=== PATIENT | male | born 1970 | race Caucasian/White ===

== ENCOUNTER 2019-10-23 14:42 | Inpatient (IN) ==
[~2019-10-23 14:42] MED LIST: RAPID SEQUENCE INDUCTION BAG ONE
[2019-10-23] MEDS ORDERED: SODIUM CHLORIDE 0.9% 1000ML 1,000 ML IV SCH ×2 (15:00→19:00)
[2019-10-23 15:08] LABS: Basophils # (auto) 0.02 K/uL (0-0.2); Basophils % (auto) 0.2 %; Eosinophils # (auto) 0.04 K/uL (0-0.5); Eosinophils % (auto) 0.4 %; Hematocrit (blood only) 43.5 % (42-52); Hemoglobin 14.6 g/dL (14.0-18.0); Immature Granulocytes # (auto) 0.03 K/uL (0.00-0.02); Immature Granulocytes % (auto) 0.3 %; Lymphocytes # (auto) 4.34 K/uL (1.2-3.4); Lymphocytes % (auto) 39.8 %; Mean Corpuscular Hemoglobin 30.5 pg (25-34); Mean Corpuscular Hgb Conc 33.6 g/dL (32-36); Mean Corpuscular Volume 90.8 fL (80-100); Mean Platelet Volume 11.3 fL (7.4-10.4); Monocytes # (auto) 0.33 K/uL (0.11-0.59); Neutrophils # (auto) 6.14 K/uL (1.4-6.5); Neutrophils % (auto) 56.3 %; Platelet Count 247 K/uL (130-400); RDW Coefficient of Variation 12.9 % (11.5-14.5); RDW Standard Deviation 42.9 fL (36.4-46.3); Red Blood Count 4.79 M/uL (4.7-6.1)
--- NOTE | 2019-10-23 15:11 | XRay Report ---
XR chest 1V portable HISTORY: weakness COMPARISON: None. FINDINGS: The lungs are clear. Cardiac silhouette is normal in size. No pleural effusions. No pneumot horax. IMPRESSION: No acute process. ACT 112: Negative or not required by law. Electronically signed by: Mak Beasley M.D. 10/23/2019 3:09 PM
[2019-10-23 15:17] LABS: Prothrombin Time 10.9 Seconds (9.0-12.0)
--- NOTE | 2019-10-23 15:20 | Electrocardiogram Report ---
Test Reason : Blood Pressure : / mmHG Vent. Rate : 109 BPM Atrial Rate : 109 BPM P-R Int : 136 ms QRS Dur : 082 ms QT Int : 358 ms P-R-T Axes : 066 043 095 degrees QTc Int : 482 ms Sinus tachycardia Left atrial enlargement Borderline ECG No previous ECGs available Confirmed by Silvestre Romero ([id number]) on 10/23/2019 3:20:03 PM Referred By: REFERRED SELF Confirmed By:Silvestre Romero
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
[2019-10-23 15:27] LABS: Albumin Level 3.6 gm/dl (3.4-5.0); BUN Creatinine Ratio 13.1 (10-20); Calcium 8.6 mg/dl (8.5-10.1); Creatinine Clr Calc Pharmacy 75.4 ml/min; Est GFR (African American) 61.4; Est GFR (Non-African American) 52.9; Magnesium 2.1 mg/dl (1.8-2.4); Potassium 3.2 mmol/L (3.5-5.1)
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
[2019-10-23 15:56] LABS: Bilirubin,Total 0.8 mg/dl (0.2-1); Globulin 3.7 gm/dl (2.5-4.0); Thyroid Stimulating Hormone 1.77 uIu/ml (0.300-4.500); Total Protein 7.3 gm/dl (6.4-8.2); Troponin I 0.212 ng/ml (0-0.045)
[2019-10-23] MEDS ORDERED: ASPIRIN 81 MG CHEW ONE ×2 (15:56→15:58)
[2019-10-23] MEDS ORDERED: HEPARIN (PORCINE) 1000 UNIT/ML 10 ML (CATH LAB USE ONLY) ONE ×2 (16:07→17:17)
[2019-10-23] MEDS ORDERED: NiCARDipine HCL INJ 2.5 MG/ML 10 ML AMP ONE (16:07)
[2019-10-23] MEDS ORDERED: MIDAZOLAM HCL 1 MG/ML 2ML VIAL ONE (16:07)
[2019-10-23] MEDS ORDERED: fentaNYL citrate 100 MCG/2 ML VIAL ONE (16:07)
[2019-10-23] MEDS ORDERED: NITROGLYCERIN/D5W 100MCG/ML 20ML SYR ONE (16:08)
--- NOTE | 2019-10-23 16:14 | Pre Anesthesia Assessment ---
Date of Service October 23, 2019 Pre Sedation Assessment Vital Signs Temp Pulse Pulse Resp BP BP Pulse Ox 10/23/19 15:48 95 H 22 141/87 H 98 10/23/19 15:31 96 H 99 10/23/19 15:30 98 H 126/81 99 10/23/19 15:20 99 H 98 10/23/19 15:17 100 H 99 10/23/19 15:16 99 H 91/73 L 98 10/23/19 15:15 95 10/23/19 15:00 100 H 98 10/23/19 14:58 103 H 96 10/23/19 14:52 98.6 F 115 H 30 H 125/80 99 10/23/19 14:45 102 H 125/80 99 Cardiovascular RRR, no murmur, no edema Respiratory normal respiratory effort, lungs clear to auscultation Pre-Sedation Airway Assessment Smoking Status: Never smoker Hx Sleep Apnea: No Short, Thick Neck: No Thyromental Distance: > or= 3.5 Finger Breadths Oral Cavity: + WNL Mallampati Class: I ASA: ASA3 NPO Status Date of Last Intake of Fluids: 10/23/19 Time of Last Intake of Fluids: 07:00 Date of Last Intake of Solid Food: 10/23/19 Time of Last Intake of Solid Foods: 07:00 Procedure Planning Contraindications for Sedation: none Current Medications Reviewed: Yes Notes The planned sedation has been discussed with the patient. Informed Consent was obtained. I have identified the patient, determined the appropriateness of sedation and have assessed the patient immediately prior to the procedure. All medicine(s) and interventions are by my order.
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
[2019-10-23] MEDS ORDERED: TICAGRELOR 90 MG TAB PO ONE (17:59)
--- NOTE | 2019-10-23 18:26 | Post Anesthesia Assessment ---
Date of Service October 23, 2019 Post Sedation Assessment Vital Signs Temp Pulse Pulse Resp BP BP Pulse Ox 10/23/19 15:48 95 H 22 141/87 H 98 10/23/19 15:31 96 H 99 10/23/19 15:30 98 H 126/81 99 10/23/19 15:20 99 H 98 10/23/19 15:17 100 H 99 10/23/19 15:16 99 H 91/73 L 98 10/23/19 15:15 95 10/23/19 15:00 100 H 98 10/23/19 14:58 103 H 96 10/23/19 14:52 98.6 F 115 H 30 H 125/80 99 10/23/19 14:45 102 H 125/80 99 Recovery Score Activity: Moves 4 extremities Respiration: Deep Breath/Cough Circulation: +/-20% PreAnes Value Consciousness: Fully Awake Oxygen Saturation: O2 needed for >90% Discharge Sedation Level of Care: Fast Track Phase II Post Sedation Plan On clinical assessment, the patient appears to have tolerated the sedation without complications. Patient is recovering as anticipated. Patient will continue to be monitored by nursing and may be discharged when sedation discharge criteria are met per below protocol. Upon Completions of procedure up to 15 minutes continue every 5 minute vital signs and the P.A.R. score; then discharge to a Phase I or Fast Track to Phase II per the following guidelines: * Discharge Patient to appropriate Phase II area if PAR is 8 or greater or return to pre- procedure baseline. The post - procedure orders will be as directed. * If PAR score is less than 8 or not return to pre-procedure baseline then patient will follow Phase I monitoring till PAR is reached for Phase II. The Phase I may be done in procedure room or may call to secure a Phase I area. * If naloxone or flumazenil are used for reversal, hold in Phase I for continued monitoring from when last reversal dose was given for a minimum of 60 minutes or longer pending the nurse and/or physician discretion of patient condition before discharge to Phase II. Please call the Sedation Physician to re-evaluate and complete post-note for discharge to Phase II area. Do NOT discharge from procedure sedation or Phase 1 until post- sedation evaluation note is complete by procedure /sedation MD Sedation Discharge Instructions to be given to the patient at discharge to home.
[2019-10-23] MEDS ORDERED: MoRPHine SULFATE 2 MG/ML CARP IV PRN (18:35)
[2019-10-23] MEDS ORDERED: ICU ELECTROLYTE REPLACEMENT PROTOCOL PRN (18:35)
[2019-10-23] MEDS ORDERED: ICU PROTOCOL FOR HYPERGLYCEMIA PRN (18:35)
[2019-10-23] MEDS ORDERED: POTASSIUM CHLORIDE 10 MEQ / 100ML WTR IV STA (18:35)
[2019-10-23] MEDS ORDERED: LORazepam 0.5 MG TAB PO PRN (18:35)
[2019-10-23] MEDS ORDERED: ONDANSETRON INJ 2 MG/ML 2 ML VIAL IV PRN (18:48)
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
[2019-10-23] MEDS: POTASSIUM CHLORIDE / WTR 10 MEQ/100 ML PLCT IV SCH ×3 (19:22→21:22)
[2019-10-23 19:27] LABS: BUN Creatinine Ratio 15.5 (10-20); Calcium 8.8 mg/dl (8.5-10.1); Creatinine Clr Calc Pharmacy 89.3 ml/min; Est GFR (African American) 75.3; Potassium 3.7 mmol/L (3.5-5.1)
[2019-10-23] MEDS: METOPROLOL TARTRATE 25 MG TAB PO SCH (20:40)
[2019-10-23] MEDS: POTASSIUM CHLORIDE 20 MEQ TABCR PO SCH (20:40)
[2019-10-24] MEDS: TICAGRELOR 90 MG TAB PO SCH ×2 (06:12→17:18)
[2019-10-24 06:24] LABS: Basophils # (auto) 0.01 K/uL (0-0.2); Basophils % (auto) 0.1 %; Eosinophils # (auto) 0.02 K/uL (0-0.5); Eosinophils % (auto) 0.2 %; Hematocrit (blood only) 39.7 % (42-52); Hemoglobin 13.4 g/dL (14.0-18.0); Immature Granulocytes # (auto) 0.01 K/uL (0.00-0.02); Immature Granulocytes % (auto) 0.1 %; Lymphocytes # (auto) 1.69 K/uL (1.2-3.4); Lymphocytes % (auto) 16.2 %; Mean Corpuscular Hemoglobin 30.2 pg (25-34); Mean Corpuscular Hgb Conc 33.8 g/dL (32-36); Mean Corpuscular Volume 89.4 fL (80-100); Mean Platelet Volume 10.9 fL (7.4-10.4); Monocytes % (auto) 5.8 %; Neutrophils # (auto) 8.08 K/uL (1.4-6.5); Neutrophils % (auto) 77.6 %; Platelet Count 185 K/uL (130-400); RDW Coefficient of Variation 13.1 % (11.5-14.5); RDW Standard Deviation 42.4 fL (36.4-46.3); Red Blood Count 4.44 M/uL (4.7-6.1); White Blood Count 10.41 K/uL (4.8-10.8)
[2019-10-24 06:48] LABS: BUN Creatinine Ratio 14.5 (10-20); Calcium 8.4 mg/dl (8.5-10.1); Est GFR (African American) 104.7; Est GFR (Non-African American) 90.3; Magnesium 2.1 mg/dl (1.8-2.4); Phosphorus 2.7 mg/dl (2.5-4.9); Potassium 3.8 mmol/L (3.5-5.1); Troponin I 16.2 ng/ml (0-0.045)
--- NOTE | 2019-10-24 08:00 | Critical Care Progress Note ---
Date of Service October 24, 2019 Assessment & Plan (1) Cardiac arrest: Impression: 49 y/o without significant PMH presents with OOH VF cardiac arrest. Arrest likely precipitated by cardiac ischemia. He had an elevated lactate and evidence of elevated LFTs on presentation. Cardiac catheterization showed multivessel disease with the culprit lesion likely being an LAD. He had drug-eluting stent placed with angioplasty and has been monitored in the ICU post procedure. Recommendations: 1. Out of hospital cardiac arrest: Patient is neurologically intact. Likely secondary to cardiac ischemia. We will continue to monitor for arrhythmias post cardiac intervention. 2. Coronary artery disease: Status post drug-eluting stent to the LAD. He has multivessel disease and will likely require staged procedure. Heart rate and blood pressure have been adequately controlled. He is currently receiving aspirin, Brilinta, Lipitor, Lopressor, and Zestril. Additional titration of these medications per cardiology. 3. Elevated liver function test: Unclear if this represents hypoperfusion. It seems fairly hyperacute. Recheck LFTs today. 4. Elevated lactate level: Likely sequelae of cardiac arrest. Follow-up lactate now normal. 5. Hypokalemia: Unclear precipitant. Corrected with replacement. Continue to trend. Disposition per cardiology. Will sign off once he leaves the ICU. Feel free to contact us if we can be of additional critical care pulmonary assistance (2) Transaminitis: (3) Elevated lactic acid level: Admission and Anticipated Discharge Date Admission Date: October 23, 2019 Subjective Patient seen and examined. EMR reviewed. Discussed with critical care nurse at bedside. The patient is status post coronary angiography with drug-eluting stent placement in LAD. He has been stable overnight. No recurrent chest pain or palpitations. No persistent arrhythmias although he has had a few PACs. Has been hemodynamically stable. He denies any nausea vomiting syncope or presyncope. He overall feels well. Review of Systems Review of Systems: All systems reviewed & are unremarkable except as noted in HPI & below Physical Exam Constitutional: WD/WN, vitals as above Neck: trachea midline, no thyromegaly Respiratory: normal respiratory effort, lungs clear to auscultation Cardiovascular: RRR, no murmur, no edema Gastrointestinal (Abdomen): normal bowel sounds, soft, nontender, no hepatosplenomegaly Musculoskeletal: Extremities: extremities normal to inspection Skin: no rashes, warm and dry Lymphatic: no cervical lymphadenopathy Results & Data Results & Data ([facility]) Vital Signs (Past 12 Hours) Vital Signs Temp Pulse Resp BP Pulse Ox 10/24/19 05:40 67 7 L 127/70 96 10/24/19 04:40 73 14 140/91 97 10/24/19 03:40 36.6 C 75 12 119/73 96 10/24/19 02:32 68 12 112/75 95 10/24/19 02:02 72 12 104/75 95 10/24/19 01:32 78 12 114/76 96 10/24/19 01:02 80 0 L 112/85 94 10/24/19 00:32 83 14 107/69 95 10/24/19 00:02 36.6 C 87 16 125/85 96 10/24/19 00:00 82 10/23/19 23:32 90 14 136/82 96 10/23/19 23:02 89 14 146/94 H 96 10/23/19 22:32 89 13 128/86 94 10/23/19 22:02 96 H 16 93/75 L 96 10/23/19 21:32 94 H 23 125/77 95 10/23/19 21:02 89 16 124/72 96 10/23/19 20:26 90 17 150/110 H 94 10/23/19 20:16 87 14 133/90 97 10/23/19 20:07 36.5 C 87 21 131/94 95 Laboratory Results 10/24/19 06:15 10/24/19 06:15 Lactate decreased to 1.4 from 3.5 Initial troponin 11.4 increased to 16.2 Diagnostic Findings Cardiac cath report reviewed. Coding Level of Care Code 17633 Subseq Hosp Care Lvl 3 Diagnoses Cardiac arrest I46.9 Transaminitis R74.0 Elevated lactic acid level R79.89 Time Spent (min) 30
--- NOTE | 2019-10-24 08:14 | XCELERA ---
[id number]
[2019-10-24 08:36] LABS: Albumin Level 3.2 gm/dl (3.4-5.0); Bilirubin Direct 0.2 mg/dl (0-0.2); Total Protein 6.7 gm/dl (6.4-8.2)
[2019-10-24] MEDS: METOPROLOL TARTRATE 25 MG TAB PO SCH ×2 (08:53→20:39)
[2019-10-24] MEDS: ASPIRIN 81 MG ECTAB PO SCH (08:53)
[2019-10-24] MEDS: ATORVASTATIN 40 MG TAB PO SCH (08:54)
[2019-10-24] MEDS: POTASSIUM CHLORIDE 20 MEQ TABCR PO SCH ×2 (08:56→20:39)
[2019-10-24] MEDS ORDERED: lisinopriL 5 MG TAB PO SCH (09:00)
--- NOTE | 2019-10-24 11:57 | Electrocardiogram Report ---
Test Reason : Blood Pressure : / mmHG Vent. Rate : 087 BPM Atrial Rate : 087 BPM P-R Int : 152 ms QRS Dur : 076 ms QT Int : 366 ms P-R-T Axes : 068 008 058 degrees QTc Int : 440 ms Normal sinus rhythm Inferior infarct , age undetermined Recent Anteroseptal infarct Abnormal ECG When compared with ECG of 23-OCT-2019 14:50, Anteroseptal infarct is now Present ST no longer depressed in Anterolateral leads Confirmed by Silvestre Romero ([id number]) on 10/24/2019 11:57:31 AM Referred By: REFERRED SELF Confirmed By:Silvestre Romero
[2019-10-24] MEDS ORDERED: fentaNYL citrate 100 MCG/2 ML VIAL ONE (13:48)
[2019-10-24] MEDS ORDERED: NiCARDipine HCL INJ 2.5 MG/ML 10 ML AMP ONE (13:48)
[2019-10-24] MEDS ORDERED: HEPARIN (PORCINE) 1000 UNIT/ML 10 ML (CATH LAB USE ONLY) ONE (13:48)
[2019-10-24] MEDS ORDERED: MIDAZOLAM HCL 1 MG/ML 2ML VIAL ONE (13:49)
[2019-10-24] MEDS ORDERED: NITROGLYCERIN/D5W 100MCG/ML 20ML SYR ONE (13:49)
--- NOTE | 2019-10-24 13:49 | Pre Anesthesia Assessment ---
Date of Service October 24, 2019 Pre Sedation Assessment Vital Signs Temp Pulse Pulse Resp BP BP BP 10/24/19 10:40 98.4 F 72 12 140/95 10/24/19 09:40 78 15 131/79 10/24/19 08:39 98.6 F 72 13 144/87 H 10/24/19 07:40 72 12 126/78 10/24/19 07:00 71 13 10/24/19 05:40 67 7 L 127/70 10/24/19 04:40 73 14 140/91 10/24/19 03:40 97.9 F 75 12 119/73 10/24/19 02:32 68 12 112/75 10/24/19 02:02 72 12 104/75 10/24/19 01:32 78 12 114/76 10/24/19 01:02 80 0 L 112/85 10/24/19 00:32 83 14 107/69 10/24/19 00:02 97.9 F 87 16 125/85 10/24/19 00:00 82 10/23/19 23:32 90 14 136/82 10/23/19 23:02 89 14 146/94 H 10/23/19 22:32 89 13 128/86 10/23/19 22:02 96 H 16 93/75 L 10/23/19 21:32 94 H 23 125/77 10/23/19 21:02 89 16 124/72 10/23/19 20:26 90 17 150/110 H 10/23/19 20:16 87 14 133/90 10/23/19 20:07 97.7 F 87 21 131/94 10/23/19 19:46 88 11 L 132/76 10/23/19 19:36 84 9 L 131/88 10/23/19 19:27 85 21 10/23/19 19:26 86 16 151/88 H 10/23/19 19:15 88 12 131/76 10/23/19 19:06 85 10 L 112/80 10/23/19 18:49 87 17 124/78 10/23/19 18:46 84 124/78 10/23/19 18:30 97.5 F L 90 90 20 121/73 10/23/19 15:48 95 H 22 141/87 H 10/23/19 15:31 96 H 10/23/19 15:30 98 H 126/81 10/23/19 15:20 99 H 10/23/19 15:17 100 H 10/23/19 15:16 99 H 91/73 L 10/23/19 15:15 10/23/19 15:00 100 H 10/23/19 14:58 103 H 10/23/19 14:52 98.6 F 115 H 30 H 125/80 10/23/19 14:45 102 H 125/80 Pulse Ox 10/24/19 10:40 97 10/24/19 09:40 96 10/24/19 08:39 95 10/24/19 07:40 97 10/24/19 07:00 96 10/24/19 05:40 96 10/24/19 04:40 97 10/24/19 03:40 96 10/24/19 02:32 95 10/24/19 02:02 95 10/24/19 01:32 96 10/24/19 01:02 94 10/24/19 00:32 95 10/24/19 00:02 96 10/24/19 00:00 10/23/19 23:32 96 10/23/19 23:02 96 10/23/19 22:32 94 10/23/19 22:02 96 10/23/19 21:32 95 10/23/19 21:02 96 10/23/19 20:26 94 10/23/19 20:16 97 10/23/19 20:07 95 10/23/19 19:46 95 10/23/19 19:36 97 10/23/19 19:27 95 10/23/19 19:26 97 10/23/19 19:15 93 10/23/19 19:06 96 10/23/19 18:49 98 10/23/19 18:46 94 10/23/19 18:30 97 10/23/19 15:48 98 10/23/19 15:31 99 10/23/19 15:30 99 10/23/19 15:20 98 10/23/19 15:17 99 10/23/19 15:16 98 10/23/19 15:15 95 10/23/19 15:00 98 10/23/19 14:58 96 10/23/19 14:52 99 07/02/20 14:45 99 Cardiovascular RRR, no murmur, no edema Respiratory normal respiratory effort, lungs clear to auscultation Pre-Sedation Airway Assessment Smoking Status: Never smoker Hx Sleep Apnea: No Hx Difficult Intubation: No Short, Thick Neck: No Thyromental Distance: > or= 3.5 Finger Breadths Oral Cavity: + WNL Mallampati Class: I ASA: ASA3 NPO Status Date of Last Intake of Fluids: 10/23/19 Time of Last Intake of Fluids: 07:00 Date of Last Intake of Solid Food: 10/23/19 Time of Last Intake of Solid Foods: 07:00 Procedure Planning Contraindications for Sedation: none Current Medications Reviewed: Yes Notes The planned sedation has been discussed with the patient. Informed Consent was obtained. I have identified the patient, determined the appropriateness of sedation and have assessed the patient immediately prior to the procedure. All medicine(s) and interventions are by my order.
--- NOTE | 2019-10-24 13:50 | Hospitalist Progress Note ---
Date of Service October 24, 2019 Assessment & Plan (1) Cardiac arrest: Patient survival of sudden cardiac arrest on the scene due to AED application for likely V. fib with concern for cardiac ischemia. Patient taken emergently to the cardiac catheterization lab. Initial EKG shows some perhaps ST elevation inferiorly with reciprocal changes laterally. Results of the cardiac catheterization include intervention to lad and diagonal. Summary: Severe multivessel coronary artery disease -100% acute on chronic mid LAD occlusion. Apical vessel fills retrograde via right to left collaterals from right acute marginal 90% proximal second diagonal 95% distal RCA stenosis 99% ostial right PDA. Fills retrograde via [id number] collaterals from large OM Successful PCI of mid LAD occlusion at bifurcation of second diagonal with 3 total Davis drug-eluting stents (3.0 x 26, 3.0 x 34 overlapping in LAD, 2.5 x 15 to ostium of second diagonal). 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 Continue dual-antiplatelet therapy for at least 1 year Start low-dose beta-anderson, EMMETT inhibitor and high intensity statin Plan for staged PCI of distal RCA later in this hospitalization pending stable renal function Cardiology started asa, brillinta, metoprolol and lisinpril Patient will be admitted to the ICU Lipids, A1c pending (2) Transaminitis: Patient with AST elevated ton admission denies alcohol use and smoking Trend (3) Elevated lactic acid level: Patient's lactic acid is 5.5 and presentation could be due to his cardiac arrest will repeat labs reflexively he will be hydrated Admission and Anticipated Discharge Date Admission Date: October 23, 2019 Subjective Pt states he has some chest wall soreness related to CPR, but no other chest pain. No SOB. He is awaiting his second cath. Pt denies fever, SOB, chest pain, abd pain, n/v/c/d, LE pain or swelling. Review of Systems Review of Systems: Pertinent positives and negatives reviewed in HPI--all others negative Physical Exam Constitutional: WD/WN, vitals as above Eyes: normal visual caballero by confrontation and + anicteric sclerae Neck: normal visual inspection and trachea midline Respiratory: normal respiratory effort, lungs clear to auscultation Cardiovascular: Rate/Rhythm: regular rate and regular rhythm Gastrointestinal (Abdomen): Inspection/Auscultation: abdomen not distended Percussion/Palpation: abdomen soft; abdomen nontender Musculoskeletal: Head/Neck/Chest: normocephalic and head atraumatic negative for edema, peripheral pulses intact Skin: no rashes, warm and dry Neurologic: awake; not confused Speech / Cognition: normal speech Psychiatric: A+Ox3, euthymic affect Results & Data Results & Data ([facility]) Vital Signs (Past 12 Hours) Vital Signs Temp Pulse Resp BP Pulse Ox 10/24/19 10:40 36.9 C 72 12 140/95 97 10/24/19 09:40 78 15 131/79 96 10/24/19 08:39 37.0 C 72 13 144/87 H 95 10/24/19 07:40 72 12 126/78 97 10/24/19 07:00 71 13 96 10/24/19 05:40 67 7 L 127/70 96 10/24/19 04:40 73 14 140/91 97 10/24/19 03:40 36.6 C 75 12 119/73 96 10/24/19 02:32 68 12 112/75 95 10/24/19 02:02 72 12 104/75 95 PG Care Time/CCT Total # of Minutes Spent Total Time Spent with Patient: Total time spent is greater than 50% in coordination of care (as documented) at patient's floor/unit and/or counseling patient: Coding Level of Care Code 93670 Subseq Hosp Care Lvl 3 Diagnoses Cardiac arrest I46.9 Transaminitis R74.0 Elevated lactic acid level R79.89
--- NOTE | 2019-10-24 14:04 | Cardiology Progress Note ---
Date of Service October 24, 2019 Assessment & Plan (1) Cardiac arrest: 2. Severe multivessel coronary artery disease --Post PCI with 3 ERICK to LAD, diagonal --Residual severe distal RCA disease into PDA 3. Preserved LV function with apical wall motion abnormality Patient doing well from a cardiac standpoint. No additional arrhythmia. No chest pain overnight. LV function preserved Post procedure labs stable No apparent access site complications. Plan to proceed with staged PCI of distal RCA into PDA today Continue DAPT with aspirin, ticagrelor Titrate up beta-anderson as BP allows Continue EMMETT inhibitor, statin From a cardiac standpoint okay with transfer to telemetry and could potentially be discharged tomorrow Admission and Anticipated Discharge Date Admission Date: October 23, 2019 Subjective Feeling well today. No chest pain. No events overnight. Telemetry reviewedno significant arrhythmia Echo reviewedEF preserved, apical hypokinesis involving inferior, septal, anterior segments Review of Systems Review of Systems: All systems reviewed & are unremarkable except as noted in HPI & below Physical Exam Physical Exam: General: Comfortable, no acute distress HEENT: Sclerae anicteric, mucous membranes moist Lungs: Clear to auscultation bilaterally, no rhonchi or wheezes Cardiac: Regular rate and rhythm, no murmurs. Abdomen: Soft, nontender, nondistended, positive bowel sounds. Extremities: Warm, well perfused, no edema. Right radial artery access site with no ecchymosis, hematoma. Distal pulse and sensation intact. Skin: No rashes or lesions. Neuro: Nonfocal Psych: Alert orient x3, normal affect and mood Results & Data ([facility]) Vital Signs (Past 12 Hours) Vital Signs Temp Pulse Resp BP Pulse Ox 10/24/19 10:40 98.4 F 72 12 140/95 97 10/24/19 09:40 78 15 131/79 96 10/24/19 08:39 98.6 F 72 13 144/87 H 95 10/24/19 07:40 72 12 126/78 97 10/24/19 07:00 71 13 96 10/24/19 05:40 67 7 L 127/70 96 10/24/19 04:40 73 14 140/91 97 10/24/19 03:40 97.9 F 75 12 119/73 96 10/24/19 02:32 68 12 112/75 95 10/24/19 02:02 72 12 104/75 95 PG Care Time/CCT Total # of Minutes Spent Total Time Spent with Patient: Total time spent is greater than 50% in coordination of care (as documented) at patient's floor/unit and/or counseling patient: Coding Level of Care Code 40652 Subseq Hosp Care Lvl 3 Diagnoses Cardiac arrest I46.9
--- NOTE | 2019-10-24 15:01 | Post Anesthesia Assessment ---
Date of Service October 24, 2019 Post Sedation Assessment Vital Signs Temp Pulse Pulse Resp BP BP BP 10/24/19 14:55 66 20 115/82 10/24/19 10:40 98.4 F 72 12 140/95 10/24/19 09:40 78 15 131/79 10/24/19 08:39 98.6 F 72 13 144/87 H 10/24/19 07:40 72 12 126/78 10/24/19 07:00 71 13 10/24/19 05:40 67 7 L 127/70 10/24/19 04:40 73 14 140/91 10/24/19 03:40 97.9 F 75 12 119/73 10/24/19 02:32 68 12 112/75 10/24/19 02:02 72 12 104/75 10/24/19 01:32 78 12 114/76 10/24/19 01:02 80 0 L 112/85 10/24/19 00:32 83 14 107/69 10/24/19 00:02 97.9 F 87 16 125/85 10/24/19 00:00 82 10/23/19 23:32 90 14 136/82 10/23/19 23:02 89 14 146/94 H 10/23/19 22:32 89 13 128/86 10/23/19 22:02 96 H 16 93/75 L 10/23/19 21:32 94 H 23 125/77 10/23/19 21:02 89 16 124/72 10/23/19 20:26 90 17 150/110 H 10/23/19 20:16 87 14 133/90 10/23/19 20:07 97.7 F 87 21 131/94 10/23/19 19:46 88 11 L 132/76 10/23/19 19:36 84 9 L 131/88 10/23/19 19:27 85 21 10/23/19 19:26 86 16 151/88 H 10/23/19 19:15 88 12 131/76 10/23/19 19:06 85 10 L 112/80 10/23/19 18:49 87 17 124/78 10/23/19 18:46 84 124/78 10/23/19 18:30 97.5 F L 90 90 20 121/73 10/23/19 15:48 95 H 22 141/87 H 10/23/19 15:31 96 H 10/23/19 15:30 98 H 126/81 10/23/19 15:20 99 H 10/23/19 15:17 100 H 10/23/19 15:16 99 H 91/73 L 10/23/19 15:15 Pulse Ox 10/24/19 14:55 96 10/24/19 10:40 97 10/24/19 09:40 96 10/24/19 08:39 95 10/24/19 07:40 97 10/24/19 07:00 96 10/24/19 05:40 96 10/24/19 04:40 97 10/24/19 03:40 96 10/24/19 02:32 95 10/24/19 02:02 95 10/24/19 01:32 96 10/24/19 01:02 94 10/24/19 00:32 95 10/24/19 00:02 96 10/24/19 00:00 10/23/19 23:32 96 10/23/19 23:02 96 10/23/19 22:32 94 10/23/19 22:02 96 10/23/19 21:32 95 10/23/19 21:02 96 10/23/19 20:26 94 10/23/19 20:16 97 10/23/19 20:07 95 10/23/19 19:46 95 10/23/19 19:36 97 10/23/19 19:27 95 10/23/19 19:26 97 10/23/19 19:15 93 10/23/19 19:06 96 10/23/19 18:49 98 10/23/19 18:46 94 10/23/19 18:30 97 10/23/19 15:48 98 10/23/19 15:31 99 10/23/19 15:30 99 10/23/19 15:20 98 10/23/19 15:17 99 10/23/19 15:16 98 10/23/19 15:15 95 Recovery Score Activity: Moves 4 extremities Respiration: Deep Breath/Cough Circulation: +/-20% PreAnes Value Consciousness: Fully Awake Oxygen Saturation: O2 needed for >90% Discharge Sedation Level of Care: Fast Track Phase II Post Sedation Plan On clinical assessment, the patient appears to have tolerated the sedation without complications. Patient is recovering as anticipated. Patient will continue to be monitored by nursing and may be discharged when sedation discharge criteria are met per below protocol. Upon Completions of procedure up to 15 minutes continue every 5 minute vital signs and the P.A.R. score; then discharge to a Phase I or Fast Track to Phase II per the following guidelines: * Discharge Patient to appropriate Phase II area if PAR is 8 or greater or return to pre- procedure baseline. The post - procedure orders will be as directed. * If PAR score is less than 8 or not return to pre-procedure baseline then patient will follow Phase I monitoring till PAR is reached for Phase II. The Phase I may be done in procedure room or may call to secure a Phase I area. * If naloxone or flumazenil are used for reversal, hold in Phase I for continued monitoring from when last reversal dose was given for a minimum of 60 minutes or longer pending the nurse and/or physician discretion of patient condition before discharge to Phase II. Please call the Sedation Physician to re-evaluate and complete post-note for discharge to Phase II area. Do NOT discharge from procedure sedation or Phase 1 until post- sedation evaluation note is complete by procedure /sedation MD Sedation Discharge Instructions to be given to the patient at discharge to home.
--- NOTE | 2019-10-24 15:07 | Cardiac Catheterization ---
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 Clinical evaluation leading to the procedure CAD Presenation: Non STEMI Anginal Classification: CCS IV Heart Failure: No Cardiogenic Shock within 24 Hours: No Cardiac Arrest within 24 Hours: Yes Imaging Studies Past 6 Months: Yes Stress Studies Past 6 Months: No Diagnostic Physicians Name: Power Flynn MD Status: Elective Closure Device Percutaneous Entry Location: Radial Closure Device: Radial Band Recommendations: PCI without planned CABG PCI Indication: Staged PCI Lesion Segment Name: distal RCA Culprit Artery: No Stenosis Prior to Rx (%): 95 Chronic Total Occlusion: No IVUS: No FFR: No Pre-Procedure PRASHANT Flow: 2 Previously Treated Lesion: No Lesion Complexity: Non-High/Non-C Lesion Length (mm): 22 Thrombus Present: No Bifurcation Lesion: Yes Guidewire Across Lesion: Stenosis Post-Procedure (%): 0 Post-Procedure PRASHANT Flow: 3 Devices(s) Deployed: Yes Yes Intraprocedure Events Significant Disection: No Perforation: No Cardiac Cath Procedure Full Procedure Date October 24, 2019 Pre-Procedure Diagnosis Pre-Procedure Diagnosis: Non STEMI and Cardiothoracic Symptom (Cardiac arrest) AUC Score AUC Score: 8 Post-Procedure Diagnosis Post-Procedure Diagnosis: Severe CAD and Successful PCI Procedure(s) Performed Procedure(s) Performed: Coronary Angiography and Drug Eluting Stent Garnett Mechanic Power Flynn MD Zone Maintenance Technician(s) Paolo Estimated Blood Loss Estimated Blood Loss: 10 Medication(s) Medication(s): Fentanyl, Heparin, Lidocaine 1%, Nicardipine and Nitroglycerin Summary of Findings Indication: Staged PCI of RCA. Post cardiac arrest and PCI to LAD/diagonal yesterday Access: 6 Fr right radial artery Catheters: JR4 guide Findings: For full details of patient's coronary angiography please see cath report dictated from 10/23/2019. Briefly patient found to have severe distal RCA disease as well as severe ostial PDA disease with PDA filling retrograde via [id number] collaterals. -- PCI -- Antithrombotic therapy: Heparin, ticagrelor Procedure: RCA cannulated with JR4 guide Shipping Room Supervisor 50 wire passed across lesion into distal vessel Distal RCA lesion predilated with 2.0 compliant balloon Dilated lesion stented with 2.25 x 22 mm Davis drug-eluting stent from mid RCA into right PDA Stent post-dilated with stent balloon IC vasodilators administered for spasm Post procedure PRASHANT 3 flow, stent well expanded with minimal residual stenosis and no apparent cardiac complications. Arterial Closure: TR band Summary: 1. Successful PCI of distal RCA into right PDA with a single drug-eluting stent (2.25 x 22 mm [place]). Recommendations: Return to ICU for continued monitoring Continue dual-antiplatelet therapy for at least 1 year Hemodynamics Rest Ao:: 119/65/85 Final Ao: 95/65/77 LV: -- Recommendations Recommendations: PCI without planned CABG Specimens Specimens: None Radiation Exposure (mGy) 1745 Contrast (mls) 35 Fluids (cc crystalloids) Fluids (cc crystalloids): 80 Drains Drains: None Anesthesia Moderate Procedural Complication(s) None Disposition ICU I attest to the content of the Intraoperative Record and any orders documented therein. Any exceptions are noted below. [facility] Card Cath Procedure Codes Moderate Sedation Procedure 1: Sedation/Anesthesia: 45885 Mod Sedation by the same physician;Init15 Min Child Age 5 & Up Stenting Procedure 1: Cardiovascular Stent Procedures: 02062 Perc transcatheter placement of intracoronary stent(s), with ang PG Care Time/CCT Total # of Minutes Spent Total Time Spent with Patient: Total time spent is greater than 50% in coordination of care (as documented) at patient's floor/unit and/or counseling patient:
[2019-10-24] MEDS ORDERED: SODIUM CHLORIDE 0.9% 1000ML 1,000 ML IV SCH (15:15)
--- NOTE | 2019-10-24 15:52 | Electrocardiogram Report ---
Test Reason : Blood Pressure : / mmHG Vent. Rate : 070 BPM Atrial Rate : 070 BPM P-R Int : 168 ms QRS Dur : 088 ms QT Int : 388 ms P-R-T Axes : 055 016 097 degrees QTc Int : 419 ms Normal sinus rhythm Recent Septal infarct (cited on or before 23-OCT-2019) Recent Inferior infarct (cited on or before 23-OCT-2019) Abnormal ECG When compared with ECG of 23-OCT-2019 18:43, Inverted T waves have replaced nonspecific T wave abnormality in Lateral leads Confirmed by Silvestre Romero ([id number]) on 10/24/2019 3:52:32 PM Referred By: REFERRED SELF Confirmed By:Silvestre Romero
[2019-10-25] MEDS ORDERED: NITROGLYCERIN SL 0.4 MG/TAB TAB SL SCH
[2019-10-25 04:32] LABS: Basophils # (auto) 0.02 K/uL (0-0.2); Basophils % (auto) 0.2 %; Eosinophils # (auto) 0.12 K/uL (0-0.5); Eosinophils % (auto) 1.4 %; Hematocrit (blood only) 40.4 % (42-52); Hemoglobin 13.4 g/dL (14.0-18.0); Immature Granulocytes # (auto) 0.02 K/uL (0.00-0.02); Immature Granulocytes % (auto) 0.2 %; Lymphocytes # (auto) 2.68 K/uL (1.2-3.4); Lymphocytes % (auto) 30.6 %; Mean Corpuscular Hgb Conc 33.2 g/dL (32-36); Mean Corpuscular Volume 93.5 fL (80-100); Monocytes # (auto) 0.64 K/uL (0.11-0.59); Monocytes % (auto) 7.3 %; Neutrophils # (auto) 5.27 K/uL (1.4-6.5); Neutrophils % (auto) 60.3 %; Platelet Count 178 K/uL (130-400); RDW Coefficient of Variation 13.1 % (11.5-14.5); RDW Standard Deviation 44.9 fL (36.4-46.3); Red Blood Count 4.32 M/uL (4.7-6.1); White Blood Count 8.75 K/uL (4.8-10.8)
[2019-10-25 04:50] LABS: BUN Creatinine Ratio 12.2 (10-20); Calcium 8.7 mg/dl (8.5-10.1); Creatinine Clr Calc Pharmacy 85.3 ml/min; Est GFR (African American) 80.5; Est GFR (Non-African American) 69.5; Magnesium 2.2 mg/dl (1.8-2.4); Potassium 4.3 mmol/L (3.5-5.1)
[2019-10-25 04:53] LABS: Phosphorus 2.6 mg/dl (2.5-4.9)
[2019-10-25] MEDS: TICAGRELOR 90 MG TAB PO SCH ×2 (05:31→17:01)
[2019-10-25 05:59] LABS: Estimated Average Glucose 120 mg/dl; Hemoglobin A1C 5.8 % (4.5-5.6)
--- NOTE | 2019-10-25 07:39 | Critical Care Progress Note ---
Date of Service October 25, 2019 Assessment & Plan (1) Cardiac arrest: Impression: 49 y/o without significant PMH presents with OOH VF cardiac arrest. Arrest likely precipitated by cardiac ischemia. He had an elevated lactate and evidence of elevated LFTs on presentation which have now resolved. Cardiac catheterization showed multivessel disease with the culprit lesion likely being an LAD. He is undergone staged cardiac catheterization and stenting with initial stent placement LAD and follow-up stent 24 hours later placed to the RCA. He is doing well clinically Recommendations: 1. Out of hospital cardiac arrest: Patient is neurologically intact. Likely secondary to cardiac ischemia. No significant sequelae 2. Coronary artery disease: Status post drug-eluting stent to the LAD with follow-up staging procedure and stenting of the RCA. Heart rate and blood pressure have been adequately controlled. He is currently receiving aspirin, Brilinta, Lipitor, Lopressor, and Zestril. Additional titration of these medications per cardiology. 3. Elevated liver function test: Resolving. 4. Elevated lactate level: Likely sequelae of cardiac arrest. Follow-up lactate now normal. 5. Hypokalemia: Unclear precipitant. Corrected with replacement. Continue to trend. 6. Elevated hemoglobin A1c of 5.8. Recommend diet control and follow-up with PCM. Blood sugars have been adequate here in the hospital. Consider referral to the market president. Per primary service Cardiology notes indicate possible transfer to telemetry or discharge today. Will sign off at this point time. Feel free to contact us if we can be of additional assistance (2) Transaminitis: (3) Elevated lactic acid level: Admission and Anticipated Discharge Date Admission Date: October 23, 2019 Subjective No events overnight. Return to the Audio Visual Specialist yesterday afternoon for staged procedure with stenting of the right coronary artery which was uneventful. The patient's radial access site looks good. He has no chest pain or palpitations. He is tolerating a diet. He is been hemodynamically stable. Review of Systems Review of Systems: All systems reviewed & are unremarkable except as noted in HPI & below Physical Exam Constitutional: WD/WN, vitals as above Neck: trachea midline, no thyromegaly Respiratory: normal respiratory effort, lungs clear to auscultation Cardiovascular: RRR, no murmur, no edema Gastrointestinal (Abdomen): normal bowel sounds, soft, nontender, no hepatosplenomegaly Musculoskeletal: Extremities: extremities normal to inspection Skin: no rashes, warm and dry Lymphatic: no cervical lymphadenopathy Results & Data Results & Data ([facility]) Vital Signs (Past 12 Hours) Vital Signs Temp Pulse Resp BP Pulse Ox 10/25/19 06:16 36.8 C 10/25/19 06:00 57 L 14 96 10/25/19 05:21 56 L 18 81/54 L 95 10/25/19 04:21 58 L 19 108/67 97 10/25/19 04:00 60 13 97 10/25/19 03:38 68 19 118/66 96 10/25/19 02:22 59 L 10 L 107/66 96 10/25/19 02:08 36.9 C 10/25/19 02:01 57 L 3 L 94 10/25/19 01:21 60 13 98/61 L 95 10/25/19 00:42 60 10/25/19 00:22 56 L 16 88/48 L 96 10/25/19 00:00 57 L 12 95 10/24/19 23:25 70 20 100/73 98 10/24/19 22:21 65 17 131/87 97 10/24/19 22:00 64 19 97 10/24/19 21:21 67 19 114/71 96 10/24/19 20:54 76 10/24/19 20:50 36.6 C 10/24/19 20:41 69 16 97 10/24/19 20:40 76 21 116/71 93 10/24/19 20:00 74 18 95 Laboratory Results 10/25/19 04:22 10/25/19 04:22 Diagnostic Findings Cath note reviewed with stenting of the distal RCA Echo from yesterday showed concentric LVH with an EF of 50 to 55% with mild to moderate apical, inferior, septal, and anterior hypokinesis with abnormal septal motion. No significant valvular disease. Coding Level of Care Code 80932 Subseq Hosp Care Lvl 2 Diagnoses Cardiac arrest I46.9 Transaminitis R74.0 Elevated lactic acid level R79.89
[2019-10-25] MEDS: ASPIRIN 81 MG ECTAB PO SCH (08:11)
[2019-10-25] MEDS: ATORVASTATIN 40 MG TAB PO SCH (08:11)
[2019-10-25] MEDS: METOPROLOL TARTRATE 25 MG TAB PO SCH (08:14)
[2019-10-25 08:22] LABS: Alanine Aminotransferase 635 U/L (12-78); Aspartate Aminotransferase 166 U/L (15-37)
--- NOTE | 2019-10-25 14:36 | Electrocardiogram Report ---
Test Reason : Blood Pressure : / mmHG Vent. Rate : 056 BPM Atrial Rate : 056 BPM P-R Int : 154 ms QRS Dur : 074 ms QT Int : 422 ms P-R-T Axes : 051 023 088 degrees QTc Int : 407 ms Sinus bradycardia Subacute Inferior infarct (cited on or before 23-OCT-2019) Subacute Anteroseptal infarct (cited on or before 23-OCT-2019) Abnormal ECG When compared with ECG of 24-OCT-2019 07:15, No significant change was found Confirmed by Victorino Dupont ([id number]) on 10/25/2019 2:36:27 PM Referred By: REFERRED SELF Confirmed By:Victorino Dupont
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
--- NOTE | 2019-10-25 16:58 | Cardiology Progress Note ---
Date of Service October 25, 2019 Assessment & Plan (1) Cardiac arrest: 2. Severe multivessel coronary artery disease --Post PCI with 3 ERICK to LAD, diagonal --Post PCI with ERICK to RCA and PDA 3. Preserved LV function with apical wall motion abnormality 4. Dyslipidemia Patient doing well from a cardiac standpoint. No additional arrhythmia. No additional chest pain. No access site complications. From a cardiac standpoint okay with discharge today. Continue DAPT with aspirin, ticagrelor Home on beta-anderson, EMMETT inhibitor and high intensity statin. Follow-up with cardiology in 2 weeks. Admission and Anticipated Discharge Date Admission Date: October 23, 2019 Subjective Patient feeling well. No chest pain. No other complaints. Telemetry reviewedno arrhythmia Review of Systems Review of Systems: All systems reviewed & are unremarkable except as noted in HPI & below Physical Exam Physical Exam: General: Comfortable, no acute distress HEENT: Sclerae anicteric, mucous membranes moist Lungs: Clear to auscultation bilaterally, no rhonchi or wheezes Cardiac: Regular rate and rhythm, no murmurs. Abdomen: Soft, nontender, nondistended, positive bowel sounds. Extremities: Warm, well perfused, no edema. Right radial artery access site with no ecchymosis, hematoma. Distal pulse and sensation intact. Skin: No rashes or lesions. Neuro: Nonfocal Psych: Alert orient x3, normal affect and mood Results & Data ([facility]) Vital Signs (Past 12 Hours) Vital Signs Temp Pulse Pulse Resp BP BP BP 10/25/19 16:50 98.4 F 60 16 110/70 141/87 H 10/25/19 14:21 58 L 16 102/70 10/25/19 14:00 59 L 16 10/25/19 13:21 70 21 116/76 10/25/19 13:00 63 20 10/25/19 12:32 68 19 105/62 10/25/19 12:21 55 L 16 105/62 10/25/19 12:00 98.4 F 63 16 10/25/19 11:22 55 L 17 10/25/19 11:21 53 L 14 98/67 L 10/25/19 11:00 56 L 12 10/25/19 10:21 56 L 17 104/65 10/25/19 10:00 56 L 16 10/25/19 09:21 60 10 L 103/63 10/25/19 09:01 60 16 10/25/19 08:21 69 18 110/64 10/25/19 08:13 67 16 109/58 L 10/25/19 08:10 98.2 F 68 14 10/25/19 07:00 53 L 13 10/25/19 06:16 98.2 F 10/25/19 06:00 57 L 14 10/25/19 05:21 56 L 18 81/54 L Pulse Ox 10/25/19 16:50 97 10/25/19 14:21 97 10/25/19 14:00 96 10/25/19 13:21 97 10/25/19 13:00 98 10/25/19 12:32 97 10/25/19 12:21 98 10/25/19 12:00 97 10/25/19 11:22 95 10/25/19 11:21 96 10/25/19 11:00 97 10/25/19 10:21 97 10/25/19 10:00 96 10/25/19 09:21 98 10/25/19 09:01 95 10/25/19 08:21 98 10/25/19 08:13 96 10/25/19 08:10 97 10/25/19 07:00 96 10/25/19 06:16 10/25/19 06:00 96 10/25/19 05:21 95 PG Care Time/CCT Total # of Minutes Spent Total Time Spent with Patient: Total time spent is greater than 50% in coordination of care (as documented) at patient's floor/unit and/or counseling patient: Coding Level of Care Code 92069 Subseq Hosp Care Lvl 3 Diagnoses Cardiac arrest I46.9
[2019-10-25] MEDS ORDERED: Nursing to Pharmacy Communication SCH (17:45)
== END 2019-10-25 18:01 | disposition home or self-care (01) | DRG 246 ==
LOC: ED 14:42 → 1E 15:44 → SUATTDRO 15:46